=== PATIENT | male | born 1970 | race Caucasian/White ===

== ENCOUNTER 2017-02-13 10:50 | Emergency (ER) | payer OTHER ==
[~2017-02-13] VITALS: Ht 175.3 cm; Wt 73.0 kg
[2017-02-13 11:00] VITALS: BP 150/88; PULSE 104; RESP 18; TEMP 98.5; O2SAT 98
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
[2017-02-13] MEDS ORDERED: ACETAMINOPHEN/HYDROcodone 325 MG/5 MG TAB PO ONE (11:30)
[2017-02-13] MEDS ORDERED: LIDOCAINE HCL 1% 50 ML VIAL INFIL ONE (11:45)
[2017-02-13] MEDS ORDERED: TETANUS/DIPHTHERIA TOXOID ADULT 0.5 ML VIAL IM ONE (11:45)
--- NOTE | 2017-02-13 12:04 | RADRPT ---
EXAM DATE/TIME: 02/13/2017 11:35 [facility] COMPARISON: No previous studies available for comparison. INDICATIONS : [facility], complains of pain of right knee. MEDICAL HISTORY : None. SURGICAL HISTORY : None. ENCOUNTER: Initial ACUITY: 2 days PAIN SCORE: 10/10 LOCATION: Right knee FINDINGS: 2 views of the knee reveal medial joint space narrowing with periarticular sclerotic change and mild osteophyte production. Small joint effusion. No fracture or dislocation. Soft tissue swelling. CONCLUSION: 1. Small joint effusion. 2. Soft tissue swelling involving the prepatellar soft tissues. 3. Osteoarthritis. Bran Whaley Jr., MD on February 13, 2017 at 12:02 Board Certified Radiologist. This report was verified electronically.
--- NOTE | 2017-02-13 12:06 | RADRPT ---
EXAM DATE/TIME: 02/13/2017 11:35 [facility] COMPARISON: No previous studies available for comparison. INDICATIONS : [facility], complains of right medial ankle pain. MEDICAL HISTORY : None. SURGICAL HISTORY : None. ENCOUNTER: Initial ACUITY: 2 days PAIN SCORE: 10/10 LOCATION: Right ankle FINDINGS: 3 views of the right ankle show no fracture or dislocation. Small joint effusion. Osteoarthritis invo lving the tibiotalar joint. Either old trauma or unfused ossification center adjacent to the medial m alleolus of the tibia. No retained foreign body. Atherosclerotic change is noted. CONCLUSION: 1. Osteoarthritis with joint effusion. 2. No acute abnormality. Bran Whaley Jr., MD on February 13, 2017 at 12:03 Board Certified Radiologist. This report was verified electronically.
--- NOTE | 2017-02-13 12:07 | RADRPT ---
EXAM DATE/TIME: 02/13/2017 11:35 [facility] COMPARISON: No previous studies available for comparison. INDICATIONS : [facility], complains of right shoulder pain. MEDICAL HISTORY : None. SURGICAL HISTORY : None. ENCOUNTER: Initial ACUITY: 2 days PAIN SCORE: 10/10 LOCATION: Right shoulder FINDINGS: 5 views of the shoulder show loss arthritis involving the glenohumeral joint. No fractures or disloca tions observed. Soft tissues are unremarkable. CONCLUSION: Osteoarthritis without acute abnormality. Bran Whaley Jr., MD on February 13, 2017 at 12:05 Board Certified Radiologist. This report was verified electronically.
[2017-02-13] MEDS ORDERED: HYDR-3516 PO (12:19)
[2017-02-13] MEDS ORDERED: BACT800T5 PO (12:43)
[2017-02-13] MEDS ORDERED: CEPH-460 PO (12:43)
== END 2017-02-13 13:40 | disposition home or self-care (01) ==
LOC: PHEFT 10:50
DX: S80.01XA Contusion of right knee, initial encounter (principal); S90.01XA Contusion of right ankle, initial encounter; S40.011A Contusion of right shoulder, initial encounter; S91.001A Unspecified open wound, right ankle, initial encounter; V28.9XXA Unspecified motorcycle rider injured in noncollision transport accident in traffic accident, initial encounter; Y92.481 Parking lot as the place of occurrence of the external cause; Z23 Encounter for immunization
CPT/HCPCS: 73030; 73560; 73610; 90471; 90714; 99284; E0113; L1906

== ENCOUNTER 2017-08-27 12:48 | Emergency (ER) | payer OTHER ==
[~2017-08-27] VITALS: Ht 175.3 cm; Wt 71.4 kg
[~2017-08-27 12:48] MED LIST: BACT800T5 PO; CEPH-460 PO; HYDR-3516 PO
[2017-08-27 12:56] VITALS: BP 146/85; PULSE 72; RESP 16; TEMP 98.8; O2SAT 97
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
[2017-08-27] MEDS ORDERED: KETOROLAC TROMETHAMINE 60 MG/2 ML (IM) VIAL IM ONE (13:15)
[2017-08-27] MEDS ORDERED: ORPHENADRINE INJ 60 MG/2 ML AMP IM ONE (13:15)
[2017-08-27] MEDS ORDERED: NORC5TAB PO (15:16)
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
[2017-08-27] MEDS ORDERED: IBUP1TAB7 PO (15:17)
== END 2017-08-27 15:58 | disposition home or self-care (01) ==
LOC: PHEFT 12:48
DX: S22.32XA Fracture of one rib, left side, initial encounter for closed fracture (principal); W22.8XXA Striking against or struck by other objects, initial encounter; Y92.015 Private garage of single-family (private) house as the place of occurrence of the external cause; Z72.0 Tobacco use
CPT/HCPCS: 71101; 94150; 96372; 99283; J1885; J2360